=== PATIENT | male | born 1955 | race Two or more races ===

== ENCOUNTER 2021-04-27 21:57 | Emergency (ER) | payer OTHER ==
[~2021-04-27] VITALS: Ht 172.7 cm; Wt 111.1 kg
[2021-04-27] MEDS ORDERED: LOSARTAN POTASS50 MG PO (22:02)
== END 2021-04-28 01:11 | disposition home or self-care (01) ==
LOC: ER 21:57
DX: B20 Human immunodeficiency virus [HIV] disease (principal); I95.89 Other hypotension; E16.1 Other hypoglycemia; R42 Dizziness and giddiness